=== PATIENT | female | born 1945 | race Caucasian/White ===

== ENCOUNTER → 2022-11-08 | Outpatient (CLI) | payer MEDICARE, OTHER ==
[~2022-11-08] VITALS: Ht 162.6 cm; Wt 84.4 kg
[~2022-11-08] MED LIST: ROMOSOZUMAB AQQG 210 MG/2.34 ML SQ ONE
[2022-11-08 12:55] VITALS: BP 146/70; O2SAT 95
== END ==
LOC: M INFU 12:50
PROVIDERS: ATTEND Internal Medicine Endocrinology, Diabetes & Metabolism
DX: M81.0 Age-related osteoporosis without current pathological fracture (principal)
CPT/HCPCS: 96372; J3111

== ENCOUNTER 2022-12-14 15:45 | Outpatient (CLI) | payer MEDICARE ==
[2022-12-14 16:00] VITALS: BP 152/71; O2SAT 98
== END 2022-12-14 16:05 | disposition home or self-care (01) ==
LOC: M INFU 15:45
PROVIDERS: ATTEND Internal Medicine Endocrinology, Diabetes & Metabolism
DX: M81.0 Age-related osteoporosis without current pathological fracture (principal)
CPT/HCPCS: 96372; J3111

== ENCOUNTER → 2023-01-15 | Outpatient (CLI) | payer MEDICARE, OTHER ==
[~2023-01-15] VITALS: Ht 165.1 cm; Wt 75.9 kg
[2023-01-15 15:25] VITALS: BP 148/62; O2SAT 99
== END ==
LOC: M INFU 15:13
PROVIDERS: ATTEND Internal Medicine Endocrinology, Diabetes & Metabolism
DX: M81.0 Age-related osteoporosis without current pathological fracture (principal)
CPT/HCPCS: 96372; J3111